=== PATIENT | female | born 1960 | race Caucasian/White ===

== ENCOUNTER 2023-10-25 10:49 | Outpatient (CLI) | payer MEDICARE | END 2023-10-25 10:50 | disposition home or self-care (01) | LOC: CSHLAB 10:49 | PROVIDERS: ATTEND Otolaryngology Otolaryngic Allergy | DX: Z01.818 Encounter for other preprocedural examination (principal); E83.52 Hypercalcemia; E21.3 Hyperparathyroidism, unspecified | CPT/HCPCS: 93005; 93010 ==